=== PATIENT | male | born 1955 | race Caucasian/White ===

== ENCOUNTER → 2018-02-12 | Outpatient (CLI) | payer MEDICARE ==
[~2018-02-12] VITALS: Ht 182.9 cm; Wt 80.0 kg
[~2018-02-12] MED LIST: METOPROLOL SUCC50 M1 PO; TENORMIN25 MG PO; VALIUM 2MG T2 MG/TAB PO
[2018-02-12 14:25] LABS: EOS # 0.1 (0.04-0.40); EOS % 1.2 % (0.0-4.0); LYMPH# 1.2 (1.50-4.00); MEAN CELL VOLUME 89 fl (78-100); MEAN CORPUSCULAR HEMOGLOBIN 30 pg (27-31); MEAN CORPUSCULAR HGB CONC 34 g/dL (33-37); MEAN PLATELET VOLUME 9.6 fl (7.4-10.4); MONO # 0.5 (0.20-0.80); NEU # 4.2 (1.40-6.50); PLATELET COUNT 237 K/mm3 (130-400); RED BLOOD COUNT 5.29 M/mm3 (4.20-5.60); RED CELL DISTRIBUTION WIDTH 12.4 % (11.5-14.5); WHITE BLOOD COUNT 5.9 K/mm3 (4.8-10.8)
[2018-02-12 14:33] LABS: ALBUMIN 4.6 g/dL (3.5-5.0); BUN/CREATININE RATIO 21.9 (6.0-26.0); POTASSIUM 4.8 mmol/L (3.6-5.0); TOTAL BILIRUBIN 0.5 mg/dL (0.2-1.3); TOTAL PROTEIN 8.3 g/dL (6.3-8.2)
[2018-02-12 14:39] VITALS: BP 138/82
[2018-02-12 14:59] LABS: URINE APPEARANCE CLEAR; URINE BILIRUBIN NEGATIVE (NEGATIVE); URINE BLOOD 50 ery/uL (NEGATIVE); URINE COLOR YELLOW; URINE GLUCOSE NEGATIVE (NEGATIVE); URINE KETONE NEGATIVE (NEGATIVE); URINE LEUKOCYTE ESTERASE NEGATIVE (NEGATIVE); URINE NITRATE NEGATIVE (NEGATIVE); URINE PROTEIN(semi-quant) TRACE mg/dL (NEGATIVE); URINE UROBILINOGEN NORMAL (NORMAL); URINE WBC 0-1 /hpf (0-3)
[2018-02-12 15:00] LABS: URINE MUCUS PRESENT (NOT PRESENT)
== END ==
LOC: AMSURD 14:04
PROVIDERS: Nurse Practitioner Family
DX: I10 Essential (primary) hypertension (principal); R53.81 Other malaise; R00.0 Tachycardia, unspecified; R10.11 Right upper quadrant pain

== ENCOUNTER → 2018-03-17 | Outpatient (CLI) | payer MEDICARE, MEDICAID ==
[2018-02-12 14:39] VITALS: BP 138/82
== END ==
LOC: RAD 11:19
DX: R10.11 Right upper quadrant pain (principal)

== ENCOUNTER → 2018-05-01 | Outpatient (CLI) | payer MEDICARE, MEDICAID ==
[2018-02-12 14:39] VITALS: BP 138/82
[2018-05-01 11:57] LABS: EOS % 0.7 % (0.0-4.0); HEMATOCRIT 42.9 % (42.0-52.0); HEMOGLOBIN 14.8 g/dL (13.5-18.0); MEAN CELL VOLUME 89 fl (78-100); MEAN CORPUSCULAR HEMOGLOBIN 31 pg (27-31); MEAN CORPUSCULAR HGB CONC 35 g/dL (33-37); MEAN PLATELET VOLUME 9.6 fl (7.4-10.4); MONO # 0.5 (0.20-0.80); NEU # 2.9 (1.40-6.50); PLATELET COUNT 235 K/mm3 (130-400); RED BLOOD COUNT 4.82 M/mm3 (4.20-5.60); RED CELL DISTRIBUTION WIDTH 12.8 % (11.5-14.5); WHITE BLOOD COUNT 4.4 K/mm3 (4.8-10.8)
[2018-05-01 12:17] LABS: ALBUMIN 4.3 g/dL (3.5-5.0); BUN/CREATININE RATIO 18.8 (6.0-26.0); CALCIUM 9.2 mg/dL (8.4-10.2); POTASSIUM 4.5 mmol/L (3.6-5.0); TOTAL BILIRUBIN 0.6 mg/dL (0.2-1.3); TOTAL PROTEIN 7.7 g/dL (6.3-8.2)
[2018-05-01 13:03] LABS: ERYTHROCYTE SEDIMENTATION RATE 4 mm/hr (0-20)
[2018-05-02 00:17] LABS: TESTOSTERONE 600 ng/dL (221-716)
== END ==
LOC: LAB 11:38
PROVIDERS: Internal Medicine
DX: R20.2 Paresthesia of skin (principal); K90.9 Intestinal malabsorption, unspecified; R10.84 Generalized abdominal pain; I10 Essential (primary) hypertension; R19.7 Diarrhea, unspecified

== ENCOUNTER → 2018-05-20 | Outpatient (CLI) | payer MEDICARE, MEDICAID ==
[2018-02-12 14:39] VITALS: BP 138/82
== END ==
LOC: LAB 11:22
DX: R19.7 Diarrhea, unspecified (principal)

== ENCOUNTER → 2018-09-21 | Outpatient (CLI) | payer MEDICARE, MEDICAID ==
[2018-02-12 14:39] VITALS: BP 138/82
[2018-09-21 22:31] LABS: C-REACTIVE PROTEIN XXX
[2018-09-22 23:41] LABS: ANA SCREEN with REFLEX Negative (Negative)
== END ==
LOC: LAB 15:04
PROVIDERS: Internal Medicine
DX: I10 Essential (primary) hypertension (principal); R10.13 Epigastric pain; R21 Rash and other nonspecific skin eruption

== ENCOUNTER → 2023-01-09 | Outpatient (CLI) | payer MEDICARE, MEDICAID | LOC: RAD 17:18 | DX: M25.512 Pain in left shoulder (principal) ==

== ENCOUNTER → 2023-02-26 | Outpatient (CLI) | payer MEDICARE, MEDICAID ==
[2023-02-26 10:09] LABS: BASO # 0.02 K/mm3 (0.02-0.10); HEMATOCRIT 48.4 % (42.0-52.0); LYMPH# 1.39 K/mm3 (1.50-4.00); MEAN CELL VOLUME 92 fl (78-100); MEAN CORPUSCULAR HEMOGLOBIN 30 pg (27-31); MEAN CORPUSCULAR HGB CONC 33 g/dL (33-37); MEAN PLATELET VOLUME 9.2 fl (7.4-10.4); MONO # 0.31 K/mm3 (0.20-0.80); NEU # 3.65 K/mm3 (1.40-6.50); PLATELET COUNT 301 K/mm3 (130-400); RED BLOOD COUNT 5.28 M/mm3 (4.20-5.60); RED CELL DISTRIBUTION WIDTH 13.4 % (11.5-14.5); WHITE BLOOD COUNT 5.4 K/mm3 (4.8-10.8)
[2023-02-26 10:15] LABS: ALBUMIN 4.6 g/dL (3.4-4.8); POTASSIUM 4.7 mmol/L (3.5-5.1)
[2023-02-26 10:16] LABS: CALCIUM 10.1 mg/dL (8.3-10.5)
[2023-02-26 10:17] LABS: TOTAL PROTEIN 7.6 g/dL (6.2-8.1)
[2023-02-26 10:19] LABS: TOTAL BILIRUBIN 0.5 mg/dL (0.2-1.2)
[2023-02-26 10:24] LABS: MAGNESIUM 1.94 mg/dL (1.60-2.60)
[2023-02-26 11:32] LABS: ERYTHROCYTE SEDIMENTATION RATE 4 mm/hr (0-20)
== END ==
LOC: LAB 09:48
PROVIDERS: Internal Medicine
DX: Z00.00 Encounter for general adult medical examination without abnormal findings (principal); Z12.5 Encounter for screening for malignant neoplasm of prostate; Z23 Encounter for immunization; K90.9 Intestinal malabsorption, unspecified; I10 Essential (primary) hypertension; E78.2 Mixed hyperlipidemia; M47.812 Spondylosis without myelopathy or radiculopathy, cervical region; G89.4 Chronic pain syndrome; F41.1 Generalized anxiety disorder; I47.1 Supraventricular tachycardia; Z72.0 Tobacco use; K63.5 Polyp of colon; K22.70 Barrett's esophagus without dysplasia; M79.10 Myalgia, unspecified site